=== PATIENT | female | born 1940 | race Caucasian/White ===

== ENCOUNTER 2020-09-03 15:42 | Observation (INO) ==
[2020-09-03] MEDS ORDERED: LORazepam 2 MG/1 ML VIAL IV STA (16:17)
[2020-09-03 16:52] LABS: Basophils # 0.1 10*3/uL (0.0-0.2); Basophils % 0.7 % (0.0-0.8); Eosinophils # 0.4 10*3/uL (0.0-0.87); Eosinophils % 5.6 % (0.00-10.9); Hematocrit 39.3 VOL% (35.7-47.0); Hemoglobin 13.7 GM/DL (12.0-16.0); Immature Granulocytes % 0.6 %; Immature Granulocytes Absolute 0.04 #; Lymphocytes # 1.1 10*3/uL (1.4-4.0); Lymphocytes % 14.7 % (21.3-54.2); Mean Corpuscular HGB Conc 34.9 GM/DL (32-36); Mean Corpuscular Volume 91.8 FL (87-102); Mean Platelet Volume 10.9 FL (9.6-12.0); Neutrophils % 68.4 % (38.7-73.9); Platelet Count 231 T/CUMM (130-400); Red Blood Count 4.28 MC/CUMM (3.8-5.5); Red Cell Distribution Width 12.7 % (9.3-17.3); White Blood Count 7.2 T/CUMM (4-12)
[2020-09-03 17:04] LABS: INR 2.4; Partial Thromboplastin Time 39.6 SECS (23.9-33.8)
[2020-09-03 17:13] LABS: Bilirubin,Urine Negative (Negative); Blood, Urine Small mg/dL (Negative); Glucose,Urine (UA) Negative (Negative); Ketones,Urine Negative (Negative); Mucus,Urine Occasional /LPF (Occasional); Nitrite,Urine Negative (Negative); Protein,Urine Negative; RBC,Urine 4 /HPF (0-4); Urine Appearance CLEAR (Clear); Urine Color Straw (Yellow); Urine Specific Gravity 1.006 (1.001-1.035); Urine Urobilinogen < 2.0 EU/DL (0.2-1.0); WBC,Urine 13 /HPF (0-6)
[2020-09-03 17:23] LABS: Albumin 3.4 G/DL (3.4-5.0); Bilirubin,Total 0.4 MG/DL (0.2-1.0); Calcium 9.5 MG/DL (8.5-10.1); Osmolality,Calculated 282.5 MOS/KG (273-304); Total Protein 6.7 G/DL (6.4-8.3)
[2020-09-03] MEDS ORDERED: cefTRIAXone 1,000 MG in SODIUM CHLORIDE 0.9% 100 ML IV STA (17:33)
[2020-09-03] MEDS: DEXT 5% NACL 0.45% KCL 20 MEQ 20 MEQ/1,000 ML BAG IV SCH (20:08)
[2020-09-03] MEDS ORDERED: amLODIPine 2.5 MG TABLET PO SCH (22:00)
[2020-09-03] MEDS: SOTALOL 80 MG TABLET PO SCH (22:16)
[2020-09-03] MEDS: DONEPEZIL 10 MG TABLET PO SCH (22:17)
[2020-09-03] MEDS: FAMOTIDINE 20 MG TABLET PO SCH (22:17)
[2020-09-03] MEDS: WARFARIN 3 MG TABLET PO SCH (22:17)
[2020-09-03] MEDS: FENOFIBRATE 160 MG TABLET PO SCH (22:17)
[2020-09-03] MEDS: MIRTAZAPINE 15 MG TABLET PO SCH (22:17)
[2020-09-03] MEDS: MECLIZINE 12.5 MG TABLET PO SCH (22:18)
[2020-09-04] MEDS ORDERED: ONDANSETRON 4 MG/2 ML VIAL IV PRN (01:19)
[2020-09-04] MEDS: LEVOTHYROXINE 50 MCG TABLET PO SCH (06:26)
[2020-09-04] MEDS: DEXT 5% NACL 0.45% KCL 20 MEQ 20 MEQ/1,000 ML BAG IV SCH ×2 (08:45→21:17)
[2020-09-04] MEDS: SOTALOL 80 MG TABLET PO SCH ×2 (08:46→21:14)
[2020-09-04] MEDS: FOLIC ACID 1 MG TABLET PO SCH (08:47)
[2020-09-04] MEDS: FAMOTIDINE 20 MG TABLET PO SCH ×2 (08:47→21:17)
[2020-09-04] MEDS: MULTIVITAMIN (CENTRUM) TABLET PO SCH (08:47)
[2020-09-04] MEDS: CETIRIZINE 10 MG TABLET PO SCH (08:47)
[2020-09-04] MEDS: POTASSIUM CHLORIDE 10 MEQ TABLET PO SCH (08:47)
[2020-09-04] MEDS: CYANOCOBALAMIN 500 MCG TABLET PO SCH (08:47)
[2020-09-04] MEDS ORDERED: CHOLECALCIFEROL 5,000 UNIT TABLET PO SCH (09:00)
[2020-09-04] MEDS: cefTRIAXone 500 MG in SYRINGE 1 EACH IV SCH (12:49)
[2020-09-04] MEDS ORDERED: TUBERCULIN SKIN TEST 0.1 ML SYRINGE INTRADERM ONE (13:31)
[2020-09-04] MEDS: WARFARIN 3 MG TABLET PO SCH (18:08)
[2020-09-04] MEDS: MIRTAZAPINE 15 MG TABLET PO SCH (21:14)
[2020-09-04] MEDS: DONEPEZIL 10 MG TABLET PO SCH (21:14)
[2020-09-04] MEDS: FENOFIBRATE 160 MG TABLET PO SCH (21:15)
[2020-09-04] MEDS: amLODIPine 5 MG TABLET PO SCH (21:16)
[2020-09-04] MEDS: MECLIZINE 12.5 MG TABLET PO SCH (21:16)
[2020-09-05] MEDS: DEXT 5% NACL 0.45% KCL 20 MEQ 20 MEQ/1,000 ML BAG IV SCH ×2 (06:23→21:01)
[2020-09-05] MEDS: LEVOTHYROXINE 50 MCG TABLET PO SCH (06:23)
[2020-09-05 08:53] LABS: Basophils % 0.8 % (0.0-0.8); Eosinophils # 0.5 10*3/uL (0.0-0.87); Eosinophils % 9.4 % (0.00-10.9); Hematocrit 38.4 VOL% (35.7-47.0); Hemoglobin 13.3 GM/DL (12.0-16.0); Immature Granulocytes % 0.6 %; Immature Granulocytes Absolute 0.03 #; Lymphocytes # 1.3 10*3/uL (1.4-4.0); Lymphocytes % 26.8 % (21.3-54.2); Mean Corpuscular HGB Conc 34.6 GM/DL (32-36); Mean Corpuscular Volume 92.1 FL (87-102); Mean Platelet Volume 10.4 FL (9.6-12.0); Monocytes % 7.6 % (1.7-12.7); Neutrophils % 54.8 % (38.7-73.9); Platelet Count 238 T/CUMM (130-400); Red Blood Count 4.17 MC/CUMM (3.8-5.5); Red Cell Distribution Width 12.9 % (9.3-17.3)
[2020-09-05] MEDS: SOTALOL 80 MG TABLET PO SCH ×2 (09:06→21:00)
[2020-09-05] MEDS: POTASSIUM CHLORIDE 10 MEQ TABLET PO SCH (09:06)
[2020-09-05] MEDS: FAMOTIDINE 20 MG TABLET PO SCH ×2 (09:06→21:01)
[2020-09-05] MEDS: CYANOCOBALAMIN 500 MCG TABLET PO SCH (09:06)
[2020-09-05] MEDS: MULTIVITAMIN (CENTRUM) TABLET PO SCH (09:07)
[2020-09-05] MEDS: FOLIC ACID 1 MG TABLET PO SCH (09:07)
[2020-09-05] MEDS: CETIRIZINE 10 MG TABLET PO SCH (09:07)
[2020-09-05 09:11] LABS: Calcium 9.1 MG/DL (8.5-10.1); Osmolality,Calculated 278.5 MOS/KG (273-304)
[2020-09-05] MEDS: cefTRIAXone 500 MG in SYRINGE 1 EACH IV SCH (11:27)
[2020-09-05] MEDS: WARFARIN 3 MG TABLET PO SCH (17:24)
[2020-09-05] MEDS: FENOFIBRATE 160 MG TABLET PO SCH (20:59)
[2020-09-05] MEDS: MECLIZINE 12.5 MG TABLET PO SCH (20:59)
[2020-09-05] MEDS: MIRTAZAPINE 15 MG TABLET PO SCH (21:00)
[2020-09-05] MEDS: amLODIPine 5 MG TABLET PO SCH (21:01)
[2020-09-05] MEDS: DONEPEZIL 10 MG TABLET PO SCH (21:01)
[2020-09-06] MEDS: LEVOTHYROXINE 50 MCG TABLET PO SCH (06:18)
[2020-09-06] MEDS: SOTALOL 80 MG TABLET PO SCH (08:57)
[2020-09-06] MEDS: CYANOCOBALAMIN 500 MCG TABLET PO SCH (08:58)
[2020-09-06] MEDS: FOLIC ACID 1 MG TABLET PO SCH (08:58)
[2020-09-06] MEDS: POTASSIUM CHLORIDE 10 MEQ TABLET PO SCH (08:58)
[2020-09-06] MEDS: CETIRIZINE 10 MG TABLET PO SCH (08:58)
[2020-09-06] MEDS: MULTIVITAMIN (CENTRUM) TABLET PO SCH (08:58)
[2020-09-06] MEDS: FAMOTIDINE 20 MG TABLET PO SCH (08:58)
[2020-09-06] MEDS ORDERED: NITROFURANTOIN MACRO/MONO 100 MG CAPSULE PO SCH (09:00)
[2020-09-06] MEDS ORDERED: CIPROFLOXACIN 500 MG TABLET PO SCH (09:00)
[2020-09-06] MEDS: DEXT 5% NACL 0.45% KCL 20 MEQ 20 MEQ/1,000 ML BAG IV SCH (10:56)
[2020-09-06 11:33] VITALS: BP 191/76
[2020-09-06] MEDS: cefTRIAXone 500 MG in SYRINGE 1 EACH IV SCH (12:38)
== END 2020-09-06 14:34 ==
LOC: EDBD → EDUNIT# → N.EDINP 15:42 → N.ED 15:42 → N.4E 20:16
PROVIDERS: ADMIT Internal Medicine; ATTEND Internal Medicine